=== PATIENT | male | born 1990 | race Native Hawaiian/Other Pacific Islander ===

== ENCOUNTER 2018-06-09 09:25 | Emergency (ER) | payer OTHER ==
[~2018-06-09] VITALS: Ht 188 cm; Wt 131.5 kg
[2018-06-09 09:31] VITALS: TEMP 98.2
[2018-06-09 12:36] VITALS: BP 144/80
== END 2018-06-09 12:36 | disposition home or self-care (01) ==
LOC: ED 09:25
DX: S80.01XA Contusion of right knee, initial encounter (principal); S80.11XA Contusion of right lower leg, initial encounter; W17.89XA Other fall from one level to another, initial encounter; Y93.89 Activity, other specified; Y92.098 Other place in other non-institutional residence as the place of occurrence of the external cause
CPT/HCPCS: 96372; 99283; J1885; L1830

== ENCOUNTER 2019-01-21 11:36 | Outpatient (CLI) | payer OTHER ==
[~2019-01-21] VITALS: Ht 188 cm; Wt 136.1 kg
[2019-01-21 11:55] VITALS: BP 126/79; TEMP 97.7
[2019-01-21 12:24] LABS: POTASSIUM 4.2 mmol/L (3.6-5.2); SODIUM 137 mmol/L (136-145)
== END 2019-01-21 23:17 | disposition home or self-care (01) ==
LOC: INF 11:36
PROVIDERS: Family Medicine
DX: R55 Syncope and collapse (principal); R07.89 Other chest pain
CPT/HCPCS: 36415; 36591; 36600; 80053; 82550; 82553; 82805; 84484; 96360; 96361

== ENCOUNTER 2019-01-26 21:20 | Emergency (ER) | payer OTHER ==
[~2019-01-26] VITALS: Ht 190.5 cm; Wt 136.1 kg
[2019-01-26] MEDS ORDERED: LISI20TA11 PO (21:35)
[2019-01-26 22:37] LABS: PLATELET COUNT 328 K/uL (142-355)
[2019-01-26 22:56] LABS: POTASSIUM 3.8 mmol/L (3.6-5.2)
[2019-01-26 23:43] VITALS: BP 151/95; TEMP 97.9
== END 2019-01-26 23:51 | disposition home or self-care (01) ==
LOC: ED 21:20
PROVIDERS: Emergency Medicine
DX: B34.9 Viral infection, unspecified (principal); R10.31 Right lower quadrant pain
CPT/HCPCS: 36415; 80053; 81000; 82150; 83690; 85027; 96360; 99284

== ENCOUNTER 2019-10-21 08:12 | Emergency (ER) | payer OTHER ==
[~2019-10-21] VITALS: Ht 190.5 cm; Wt 129.3 kg
[~2019-10-21 08:12] MED LIST: LISI20TA11 PO
[2019-10-21 08:17] VITALS: TEMP 98.3
[2019-10-21 08:49] LABS: PLATELET COUNT 296 K/uL (142-355)
[2019-10-21 08:56] LABS: POTASSIUM 3.5 mmol/L (3.6-5.2); SODIUM 140 mmol/L (136-145)
[2019-10-21 13:00] VITALS: BP 125/80
== END 2019-10-21 13:05 | disposition home or self-care (01) ==
LOC: ED 08:12
PROVIDERS: Emergency Medicine
DX: R07.89 Other chest pain (principal)
CPT/HCPCS: 80053; 82550; 82553; 84484; 85027; 85379; 93005; 96374; 99284; J2405

== ENCOUNTER 2021-05-04 17:11 | Emergency (ER) | payer OTHER ==
[~2021-05-04] VITALS: Ht 190.5 cm; Wt 129.3 kg
[2021-05-04 17:15] VITALS: TEMP 98.6
[2021-05-04 17:42] LABS: PLATELET COUNT 299 K/uL (142-355)
[2021-05-04 17:54] LABS: SODIUM 140 mmol/L (136-145)
[2021-05-04 18:10] LABS: PARTIAL THROMBOPLASTIN TIME 26.5 SECONDS (24.5-33.6)
[2021-05-04 18:35] VITALS: BP 156/91
== END 2021-05-04 18:36 | disposition home or self-care (01) ==
LOC: ED 17:11
PROVIDERS: Hospitalist
DX: U07.1 COVID-19 (principal); J06.9 Acute upper respiratory infection, unspecified; I10 Essential (primary) hypertension
CPT/HCPCS: 80053; 82550; 83880; 84484; 85027; 85379; 85610; 85730; 93005; 99284; J0360

== ENCOUNTER 2021-07-01 10:52 | Outpatient (CLI) | payer OTHER | END 2021-07-01 19:10 | disposition home or self-care (01) | LOC: RAD 10:52 | PROVIDERS: ATTEND Nurse Practitioner Family | DX: R06.02 Shortness of breath (principal); Z86.16 Personal history of COVID-19; Z09 Encounter for follow-up examination after completed treatment for conditions other than malignant neoplasm ==

== ENCOUNTER 2021-09-10 11:59 | Emergency (ER) | payer OTHER ==
[~2021-09-10] VITALS: Ht 190.5 cm; Wt 129.3 kg
[2021-09-10 12:10] VITALS: TEMP 99.8
[2021-09-10 12:34] LABS: PLATELET COUNT 319 K/uL (142-355)
[2021-09-10 12:43] LABS: SODIUM 138 mmol/L (136-145)
[2021-09-10 13:31] VITALS: BP 112/71
== END 2021-09-10 13:32 | disposition home or self-care (01) ==
LOC: ED 11:59
PROVIDERS: Emergency Medicine Emergency Medical Services
DX: R07.89 Other chest pain (principal)
CPT/HCPCS: 80053; 84484; 85027; 85379; 93005; 99283

== ENCOUNTER 2023-04-15 09:15 | Emergency (ER) | payer OTHER ==
[~2023-04-15] VITALS: Ht 190.5 cm; Wt 133.8 kg
[2023-04-15 09:20] VITALS: TEMP 98.4
[2023-04-15 09:49] LABS: PLATELET COUNT 327 K/uL (142-355)
[2023-04-15 09:58] LABS: POTASSIUM 3.7 mmol/L (3.6-5.2); SODIUM 136 mmol/L (136-145)
[2023-04-15 10:45] VITALS: BP 126/68
== END 2023-04-15 12:14 | disposition home or self-care (01) ==
LOC: ED 09:15
PROVIDERS: Family Medicine
DX: M94.0 Chondrocostal junction syndrome [Tietze] (principal); I10 Essential (primary) hypertension; F10.90 Alcohol use, unspecified, uncomplicated
CPT/HCPCS: 36415; 80053; 83735; 84484; 85027; 85610; 93005; 99283; J2405